=== PATIENT | female | born 1970 | race Caucasian/White ===

== ENCOUNTER → 2022-01-24 | Day surgery (SDC) | payer BC ==
[~2022-01-24] VITALS: Ht 167.6 cm; Wt 101.2 kg
[~2022-01-24] MED LIST: BENTYL 10MG CAP10 MG PO; HYDROCODON-ACE1 EAC6 PO; IBU800 MG PO; LOPRESSOR 25 MG25 MG PO; LOVENOX40 MG/0.4 SQ; Lexapro PO; MULTI-VITAMIN1 EACH PO; PRESSURE VISION
[2022-01-24 07:38] LABS: HEMOGLOBIN 13.5 gm/dl (12.3-15.3); RED BLOOD COUNT 4.6 M/UL (4.00-5.10); WHITE BLOOD COUNT 7.2 K/UL (4.5-11.0)
[2022-01-24 07:52] LABS: BUN/CREATININE RATIO 19 (0-10)
== END | disposition home or self-care (01) ==
LOC: OR 06:21
PROVIDERS: Orthopaedic Surgery
DX: S82.852A Displaced trimalleolar fracture of left lower leg, initial encounter for closed fracture (principal); W10.9XXA Fall (on) (from) unspecified stairs and steps, initial encounter; G89.18 Other acute postprocedural pain; F32.A Depression, unspecified; Z88.0 Allergy status to penicillin; Z88.2 Allergy status to sulfonamides; Z79.899 Other long term (current) drug therapy
CPT/HCPCS: 73610; 76000; 80048; 84703; 85027; C1713; J0690; J1100; J2001; J2250; J2405; J2704; J3010; J7120